=== PATIENT | male | born 1995 | race Caucasian/White ===

== ENCOUNTER 2019-04-12 11:18 | Emergency (ER) | payer SELFPAY ==
--- NOTE | 2019-04-12 11:42 | EDM.PDOC ---
ED HPI GENERAL MEDICAL PROBLEM - General Chief Complaint: Skin Complaint Stated Complaint: RASH Time Seen by Provider: 04/12/19 11:38 Source of Information: Reports: Patient History Limitations: Reports: No Limitations - History of Present Illness INITIAL COMMENTS - FREE TEXT/NARRATIVE: History of present illness: []Patient has an itchy rash on his left forearm and left butt cheek states he was hiking recently and is exposed to poison oak. He has had before and states it is similar. He's had a shot of Benadryl past that has helped has not taken any Benadryl [id number]. Review of systems: As per history of present illness and below otherwise all systems reviewed and negative. Past medical history: As per history of present illness and as reviewed below otherwise noncontributory. Surgical history: As per history of present illness and as reviewed below otherwise noncontributory. Social history: No reported history of drug or alcohol abuse. Family history: As per history of present illness and as reviewed below otherwise noncontributory. Physical exam: General: Well developed, well nourished in NAD HEENT: Atraumatic, normocephalic, pupils reactive, negative for conjunctival pallor or scleral icterus, mucous membranes moist, throat clear, neck supple, nontender, trachea midline. Lungs: Clear to auscultation, breath sounds equal bilaterally, chest nontender. Heart: S1S2, regular, negative for clicks, rubs, or JVD. Abdomen: NABS, Soft, nondistended, nontender. Negative for masses or hepatosplenomegaly. Negative for costovertebral tenderness. Pelvis: Stable nontender. Genitourinary: Deferred. Rectal: Deferred. Extremities: Atraumatic, negative for cords or calf pain. Neurovascular unremarkable. Neuro: Awake, alert, oriented. Cranial nerves II through XII unremarkable. Cerebellum unremarkable. Motor and sensory unremarkable throughout. Exam nonfocal. Skin: Raised erythematous pustular rash on the forearm Diagnostics: None Therapeutics: None ED Course: Stable Impression: Poison oak rash Prescriptions: Medrol Dosepak Plan: Take meds as directed, follow up with your primary care physician, return to ER if symptoms worsen or change. Definitive disposition and diagnosis as appropriate pending reevaluation and review of above. Left Arm Pain Score (Numeric/FACES): 7 - Related Data Allergies Allergy/AdvReac Type Severity Reaction Status Date / Time No Known Allergies Allergy Verified 04/12/19 11:38 Home Meds: Home Meds methylPREDNISolone [Medrol] 4 mg PO ASDIRECTED #1 dosepk 04/12/19 [Rx] ED ROS GENERAL - Review of Systems Review Of Systems: See Below ED EXAM, SKIN/RASH Exam: See Below (See history of present illness) Course - Vital Signs Last Recorded V/S: Last Vital Signs Temp 97.0 F 04/12/19 11:34 Pulse 114 H 04/12/19 11:34 Resp 18 04/12/19 11:34 BP 119/69 04/12/19 11:34 Pulse Ox 97 04/12/19 11:34 Departure - Departure Time of Disposition: 11:42 Disposition: Home, Self-Care 01 Condition: Good Clinical Impression: Poison oak - Discharge Information *PRESCRIPTION DRUG MONITORING PROGRAM REVIEWED*: No *COPY OF PRESCRIPTION DRUG MONITORING REPORT IN PATIENT KAREN: No Prescriptions: methylPREDNISolone [Medrol] 4 mg PO ASDIRECTED #1 dosepk Instructions: Poison [place] Dermatitis, [id number] Referrals: PCP,Unknown [Primary Care Provider] - Forms: ED Department Discharge Additional Instructions: The following information is given to patients seen in the emergency department who are being discharged to home. This information is to outline your options for follow-up care. We provide all patients seen in our emergency department with a follow-up referral. The need for follow-up, as well as the timing and circumstances, are variable depending upon the specifics of your emergency department visit. If you don't have a primary care physician on staff, we will provide you with a referral. We always advise you to contact your personal physician following an emergency department visit to inform them of the circumstance of the visit and for follow-up with them and/or the need for any referrals to a consulting specialist. The emergency department will also refer you to a specialist when appropriate. This referral assures that you have the opportunity for follow-up care with a specialist. All of these measure are taken in an effort to provide you with optimal care, which includes your follow-up. Under all circumstances we always encourage you to contact your private physician who remains a resource for coordinating your care. When calling for follow-up care, please make the office aware that this follow-up is from your recent emergency room visit. If for any reason you are refused follow-up, please contact the [facility] Emergency Department at and asked to speak to the emergency department charge nurse. Take meds as directed, follow up with your primary care physician, return to ER if symptoms worsen or change. [facility] [address] [place] [id number]
== END 2019-04-12 11:57 | disposition home or self-care (01) ==
LOC: MW.ED 11:18
DX: L23.7 Allergic contact dermatitis due to plants, except food (principal)
CPT/HCPCS: 99282

== ENCOUNTER 2022-10-24 23:13 | Emergency (ER) | payer SELFPAY ==
[2022-10-25] MEDS ORDERED: Cephalexin 500 MG Cap PO ONE (01:28)
[2022-10-25] MEDS ORDERED: Ketorolac 30 MG/ML SDV IM STA (01:28)
== END 2022-10-25 02:17 | disposition home or self-care (01) ==
LOC: MW.ED 23:13
DX: M25.461 Effusion, right knee (principal); L03.115 Cellulitis of right lower limb
CPT/HCPCS: 73562; 96372; 99283; A9270; J1885

== ENCOUNTER 2024-03-26 22:31 | Emergency (ER) | payer BC ==
[2024-03-27] MEDS: Ibuprofen 600 MG Tab PO ONE (01:25)
== END 2024-03-27 05:27 | disposition home or self-care (01) ==
LOC: MW.ED 22:31
DX: L03.116 Cellulitis of left lower limb (principal); M25.562 Pain in left knee; Z75.8 Other problems related to medical facilities and other health care; X50.9XXA Other and unspecified overexertion or strenuous movements or postures, initial encounter
CPT/HCPCS: 73562; 73600; 93971; 99284; A9270; 99283

== ENCOUNTER 2024-10-11 02:27 | Emergency (ER) | payer BC ==
[2024-10-11] MEDS: Cephalexin 500 MG Cap PO ONE (03:00)
[2024-10-11] MEDS: Mupirocin Oint 22 GM Tube TOP ONE (03:00)
[2024-10-11] MEDS: Sulfamethoxazole/Trimethoprim 800-160 MG Tab PO ONE (03:00)
[2024-10-11] MEDS: Acetaminophen 500 MG Tab PO ONE (03:01)
== END 2024-10-11 03:09 | disposition home or self-care (01) ==
LOC: MW.ED 02:27
DX: L03.115 Cellulitis of right lower limb (principal); L03.116 Cellulitis of left lower limb; Z79.899 Other long term (current) drug therapy
CPT/HCPCS: 99283; A9270

== ENCOUNTER 2025-06-29 22:05 | Emergency (ER) | payer BC ==
[2025-06-29] MEDS: Diphtheria,Pertussis(Acell),Tetanus Vaccine 0.5 ML Syringe IM ONE (23:06)
[2025-06-30] MEDS: ceFAZolin 2 GM in Water For Injection, Sterile 20 ML IVPUSH ONE (01:32)
[2025-06-30] MEDS ORDERED: Lidocaine/Epineph/Tetracaine 3 ML Syringe TOP ONE (02:14)
== END 2025-06-30 02:25 | disposition left against medical advice (07) ==
LOC: MW.ED 22:05
DX: S66.222A Laceration of extensor muscle, fascia and tendon of left thumb at wrist and hand level, initial encounter (principal); F17.200 Nicotine dependence, unspecified, uncomplicated; Z75.3 Unavailability and inaccessibility of health-care facilities; Z23 Encounter for immunization; W26.0XXA Contact with knife, initial encounter
CPT/HCPCS: 73140; 90471; 90715; 96374; 99283; A4216; J0690; J2003; A9270-GY